=== PATIENT | male | born 1995 | race African-American/Black ===

== ENCOUNTER → 2018-01-08 | Outpatient (CLI) | payer OTHER ==
--- NOTE | 2018-01-08 17:00 | DIAGNOSTIC IMAGING REPORT ---
RIGHT WRIST 4 VIEWS HISTORY: RIGHT WRIST PAIN COMPARISON: None. FINDINGS: An irregular appearance to the scaphoid waist. This raises the possibility of an age-indeterminate fracture. Diffuse soft tissue swelling. No radiopaque foreign bodies. IMPRESSION: An irregular appearance to the scaphoid waist. This raises the possibility of an age-indeterminate fracture. Recommend dedicated CT for further evaluation. Electronically signed by: Dominic Enriquez M.D. 01/08/2018 4:58 PM Dictated Date/Time: 01/08/2018 4:57 PM
== END | disposition home or self-care (01) ==
LOC: C.RDSM 16:41
PROVIDERS: ATTEND Internal Medicine
DX: M25.531 Pain in right wrist (principal)

== ENCOUNTER → 2018-01-12 | Outpatient (CLI) | payer OTHER ==
--- NOTE | 2018-01-12 15:52 | DIAGNOSTIC IMAGING REPORT ---
MRI OF THE RIGHT WRIST NO CONTRAST CLINICAL HISTORY: Right wrist pain status post trauma COMPARISON STUDY: Conventional radiographic study dated 01/08/2018 FINDINGS: Imaging was performed in the coronal, sagittal, and axial planes. There is marrow edema within the waist of the the navicular, indicative of a fracture. The triangle fibrocartilage appears intact. No distal radial or ulnar fractures are visualized. There is no evidence of tendon disruption. IMPRESSION: Nondisplaced fracture through the waist of the navicular Electronically signed by: Dion Gr M.D. 01/12/2018 3:51 PM Dictated Date/Time: 01/12/2018 3:47 PM
== END | disposition home or self-care (01) ==
LOC: C.MRIBC 14:50
PROVIDERS: ATTEND Internal Medicine
DX: S62.001A Unspecified fracture of navicular [scaphoid] bone of right wrist, initial encounter for closed fracture (principal); X58.XXXA Exposure to other specified factors, initial encounter

== ENCOUNTER → 2018-01-29 | Outpatient (CLI) | payer OTHER ==
--- NOTE | 2018-01-29 10:50 | DIAGNOSTIC IMAGING REPORT ---
R WRIST W/NAVICULAR MIN 3 VIEWS CLINICAL HISTORY: RIGHT SCAPHOID FX COMPARISON: Right wrist radiographs January 08, 2018. FINDINGS: Irregularity of the scaphoid waist with lucency and sclerosis is noted. This suggests a healing scaphoid waist fracture. Alignment is unchanged. There is no evidence for sclerosis of the proximal pole of the scaphoid. No additional fractures are identified. IMPRESSION: No change in alignment of an incompletely healed scaphoid waist fracture. Electronically signed by: Sebastian Michelle M.D. 01/29/2018 10:48 AM Dictated Date/Time: 01/29/2018 10:47 AM
== END | disposition home or self-care (01) ==
LOC: C.RDSM 10:00
PROVIDERS: ATTEND Internal Medicine
DX: S62.009A Unspecified fracture of navicular [scaphoid] bone of unspecified wrist, initial encounter for closed fracture (principal); X58.XXXA Exposure to other specified factors, initial encounter

== ENCOUNTER → 2018-02-05 | Outpatient (CLI) | payer OTHER ==
--- NOTE | 2018-02-05 16:47 | DIAGNOSTIC IMAGING REPORT ---
L HIP UNILATERAL MIN 2 VIEWS CLINICAL HISTORY: LEFT HIP PAIN COMPARISON: None. DISCUSSION: No fractures or dislocations are visualized. The joint space appears well-preserved. There are equivocal erosive changes within the symphysis pubis. IMPRESSION: 1. Equivocal erosive changes within the symphysis pubis, possibly stress related. 2. No fractures or dislocations of the left hip. No evidence of significant joint space narrowing. Electronically signed by: Dion Gr M.D. 02/05/2018 4:46 PM Dictated Date/Time: 02/05/2018 4:45 PM
== END | disposition home or self-care (01) ==
LOC: C.RDSM 20:51
PROVIDERS: ATTEND Internal Medicine
DX: M25.552 Pain in left hip (principal); R93.7 Abnormal findings on diagnostic imaging of other parts of musculoskeletal system

== ENCOUNTER → 2018-02-12 | Outpatient (CLI) | payer OTHER ==
--- NOTE | 2018-02-12 12:12 | DIAGNOSTIC IMAGING REPORT ---
R WRIST W/NAVICULAR MIN 3 VIEWS CLINICAL HISTORY: RIGHT SCAPHOID FX COMPARISON: Right wrist radiograph January 29, 2018 and January 08, 2018. FINDINGS: Irregularity of the scaphoid waist with lucency and sclerosis is unchanged since exam of January 29, 2018. No additional fractures are identified on this examination. There is no evidence for sclerosis of the proximal pole of the scaphoid. IMPRESSION: No change in alignment of the incompletely healed scaphoid waist fracture. Electronically signed by: Sebastian Michelle M.D. 02/12/2018 12:10 PM Dictated Date/Time: 02/12/2018 12:09 PM
== END | disposition home or self-care (01) ==
LOC: C.RDSM 15:06
PROVIDERS: ATTEND Internal Medicine
DX: S62.009A Unspecified fracture of navicular [scaphoid] bone of unspecified wrist, initial encounter for closed fracture (principal); X58.XXXA Exposure to other specified factors, initial encounter

== ENCOUNTER → 2018-02-26 | Outpatient (CLI) | payer OTHER ==
--- NOTE | 2018-02-26 11:38 | DIAGNOSTIC IMAGING REPORT ---
R WRIST W/NAVICULAR MIN 3 VIEWS HISTORY: 22 years-old Male RIGHT SCAPHOID FX follow-up study to assess scaphoid waist fracture COMPARISON: Radiographs 02/12/2018 TECHNIQUE: 3 views of the right wrist with single navicular view. FINDINGS: Unchanged alignment of the subacute appearing scaphoid waist fracture without significant healing identified from comparison. No increased sclerosis or articular collapse identified to suggest avascular necrosis. No additional acute fracture or dislocation. IMPRESSION: Unchanged alignment of the subacute appearing scaphoid waist fracture. No evidence of avascular necrosis. The above report was generated using voice recognition software. It may contain grammatical, syntax or spelling errors. Electronically signed by: Florentino Quijano M.D. 02/26/2018 11:36 AM Dictated Date/Time: 02/26/2018 11:34 AM
== END | disposition home or self-care (01) ==
LOC: C.RDSM 17:19
PROVIDERS: ATTEND Internal Medicine
DX: S62.001A Unspecified fracture of navicular [scaphoid] bone of right wrist, initial encounter for closed fracture (principal); X58.XXXA Exposure to other specified factors, initial encounter

== ENCOUNTER → 2018-03-15 | Outpatient (CLI) | payer OTHER ==
--- NOTE | 2018-03-15 14:00 | DIAGNOSTIC IMAGING REPORT ---
RIGHT WRIST 4 VIEWS HISTORY: F/U RIGHT SCAPHOID FX COMPARISON: Right wrist 02/26/2018. FINDINGS: Progressive sclerosis at the scaphoid waist consistent with a healing fracture. The alignment appears anatomic. No acute fracture or dislocation within the right wrist. Soft tissues are unremarkable. No radiopaque foreign bodies. IMPRESSION: Progressive healing within the scaphoid waist fracture. Electronically signed by: Dominic Enriquez M.D. 03/15/2018 1:59 PM Dictated Date/Time: 03/15/2018 1:22 PM
== END | disposition home or self-care (01) ==
LOC: C.RDSM 15:33
PROVIDERS: ATTEND Internal Medicine
DX: S62.001D Unspecified fracture of navicular [scaphoid] bone of right wrist, subsequent encounter for fracture with routine healing (principal); X58.XXXD Exposure to other specified factors, subsequent encounter

== ENCOUNTER → 2018-04-10 | Outpatient (CLI) | payer OTHER ==
--- NOTE | 2018-04-10 14:50 | DIAGNOSTIC IMAGING REPORT ---
R WRIST W/NAVICULAR MIN 3 VIEWS HISTORY: 22 years-old Male RIGHT SCAPOID FX acute right wrist pain with history of scaphoid fracture. COMPARISON: Right wrist radiographs 03/15/2018, 01/29/2018, 01/08/2018 TECHNIQUE: 4 views of the wrist with scaphoid view for a total of 5 images FINDINGS: Progressive sclerosis of the scaphoid waist compatible with healing fracture with fracture line nearly imperceptible on today's study. No additional acute fracture, dislocation or opaque foreign body. No evidence of avascular necrosis. IMPRESSION: Progressive healing of the scaphoid waist fracture appears complete to near-complete. The above report was generated using voice recognition software. It may contain grammatical, syntax or spelling errors. Electronically signed by: Florentino Quijano M.D. 04/10/2018 2:48 PM Dictated Date/Time: 04/10/2018 2:46 PM
== END | disposition home or self-care (01) ==
LOC: C.RDSM 18:47
PROVIDERS: ATTEND Internal Medicine
DX: S62.001D Unspecified fracture of navicular [scaphoid] bone of right wrist, subsequent encounter for fracture with routine healing (principal); X58.XXXD Exposure to other specified factors, subsequent encounter

== ENCOUNTER → 2018-06-27 | Outpatient (CLI) | payer OTHER ==
--- NOTE | 2018-06-27 14:50 | DIAGNOSTIC IMAGING REPORT ---
RIGHT ANKLE 3 VIEWS HISTORY: RIGHT ANKLE PAIN COMPARISON: None. FINDINGS: There is no fracture or dislocation. Mild soft tissue swelling. Small plantar heel spur. No radiopaque foreign bodies. IMPRESSION: No fracture or dislocation within the right ankle. Electronically signed by: Dominic Enriquez M.D. 06/27/2018 2:48 PM Dictated Date/Time: 06/27/2018 2:42 PM
== END | disposition home or self-care (01) ==
LOC: C.RDSM 14:29
PROVIDERS: ATTEND Family Medicine
DX: M25.571 Pain in right ankle and joints of right foot (principal)